=== PATIENT | male | born 1970 | race Hispanic/Latino ===

== ENCOUNTER 2018-03-09 09:42 | Inpatient (IN) | payer MEDICAID ==
[2018-03-09 09:47] VITALS: BMI 28.1
[2018-03-09 09:54] VITALS: O2SAT 97
--- NOTE | 2018-03-09 09:56 | ED PDOC ---
Arrival/HPI - General Time Seen by Provider: 03/09/18 09:47 Historian: Patient - History of Present Illness Narrative History of Present Illness (Text): 03/09/18 09:52 47-year-old male presents sent from [facility] (Former[facility]) for psychiatric admission. Patient is complaining of depression with suicidal ideations. He also states he is hearing voices. He denies chest pain or shortness of breath. Denies fevers or chills. Denies nausea vomiting diarrhea or constipation. No other complaints Past Medical History - Provider Review Nursing Documentation Reviewed: Yes - Travel History Have you recently traveled outside [place] w/in the past 3 mons?: No - Tetanus Immunization Tetanus Immunization: Unknown Family/Social History - Physician Review Nursing Documentation Reviewed: Yes Family/Social History: Unknown Family HX Smoking Status: Current Some Days Smoker Hx Alcohol Use: Yes Frequency of alcohol use: Socially Hx Substance Use: Yes Allergies/Home Meds Allergies/Adverse Reactions: Allergies No Known Allergies Allergy (Verified 03/09/18 09:47) Review of Systems - Review of Systems Constitutional: absent: Fatigue, Fevers Respiratory: absent: SOB, Cough Cardiovascular: absent: Chest Pain, Palpitations Gastrointestinal: absent: Abdominal Pain, Nausea, Vomiting Genitourinary Male: absent: Dysuria, Frequency, Hematuria Musculoskeletal: absent: Arthralgias, Back Pain, Neck Pain Skin: absent: Rash, Pruritis Neurological: absent: Headache, Dizziness Psychiatric: Depression, Suicidal Ideation Physical Exam Vital Signs Reviewed: Yes Temperature: Afebrile Blood Pressure: Normal Pulse: Regular Respiratory Rate: Normal Appearance: Positive for: Well-Appearing, Non-Toxic, Comfortable Pain Distress: None Mental Status: Positive for: Alert and Oriented X 3 - Systems Exam Head: Present: Atraumatic Mouth: Present: Moist Mucous Membranes Neck: Present: Normal Range of Motion Respiratory/Chest: Present: Clear to Auscultation, Good Air Exchange. No: Respiratory Distress, Accessory Muscle Use Cardiovascular: Present: Regular Rate and Rhythm, Normal S1, S2. No: Murmurs Abdomen: No: Tenderness Upper Extremity: Present: Normal ROM Lower Extremity: Present: Normal ROM Neurological: Present: GCS=15, Speech Normal Skin: Present: Warm, Dry, Normal Color. No: Rashes Psychiatric: Present: Alert, Oriented x 3 Medical Decision Making ED Course and Treatment: 03/09/18 09:55 47-year-old male psych transfer from [facility]. Patient was medically cleared for transfer and psychiatric admission. accepted by dr. Garcia. impression; depression, SI admit to behavioral health floor. Disposition/Present on Arrival - Present on Arrival Any Indicators Present on Arrival: No History of DVT/PE: No History of Uncontrolled Diabetes: No Urinary Catheter: No History of Decub. Ulcer: No - Disposition Have Diagnosis and Disposition been Completed?: Yes Diagnosis: Depression Disposition: HOSPITALIZED Disposition Time: 09:56 Patient Plan: Admission Condition: FAIR
--- NOTE | 2018-03-09 21:39 | PCM.BM ---
<ZachAshu - Last Filed: 03/09/18 21:36> Treatment Plan Problems - Problems identified on initial assessmt Auditory Hallucinations Date Initiated: 03/09/18 Time Initiated: :00 Assessment reference: NA Status: Active Priority: 1 Visual Hallucinations Date Initiated: 03/09/18 Time Initiated: 09:00 Assessment reference: NA Status: Active Priority: 2 Altered Thought Process Date Initiated: 03/09/18 Time Initiated: 09:00 Assessment reference: NA Status: Active Priority: 3 Chronic Low Self Esteem Date Initiated: 03/09/18 Time Initiated: 09:00 Assessment reference: NA Status: Active Priority: 4 Ineffective Coping Date Initiated: 03/09/18 Time Initiated: 09:00 Assessment reference: NA Status: Active Priority: 5 Treatment assets and liabiliti Patient Assests: adapts well, self-reliant, ADL independent, negotiates basic needs, good interpersonal skills Patient Liabilities: financial problems, poor support system, relationship conflicts, substance abuse - Milieu Protocol Maintain good personal hygiene: daily Encourage regular showers, every shift Remind patient to perform daily oral care, every shift Assist patient to perform ADL's Maintain personal safety: every shift Educate patient to report safety concerns to staff, every shift Monitor environment for contraband/sharps Medication safety: Monitor for expected outcome, potential side effects: every shift, Assess barriers to learning: every shift, Assess readiness for medication education: every shift Family Contact Family involvement: Family/SO is involved Family contact: Patient agrees to contact - Goals for Treatment Patient goals for treatment: I just want to get my life back the way it was with whatever help I can gain. I want to learn. Discharge/Continuing Care - Education Needs Education Needs: Patient Medication, Patient Diagnosis/Disease Process, Patient Coping Skills, Patient Anger Management skills, Patient Placement options, Patient Community resources, Patient Activities of Daily Living, Patient Pain, Patient Nutrition, Patient Uses of Medical Equipment, Patient Health Practices/ Safety, Patient Personal Hygiene/Grooming, Patient Aftercare Safety Plan, Patient Other - Discharge Discharge Criteria: Tolerates medication w/o severe side effects <Radha Maat - Last Filed: 03/10/18 14:48> - Diagnosis (1) MDD (major depressive disorder) Status: Acute Interventions: 03/10/18 14:46 Psychoeducation Psychopharmacology/adjustment of medications as needed/ monitoring possible side effects Evaluate pt on daily basis Compliance with medications and follow up appointments Suicide and homicide risk assessment and prevention Relapse prevention Reduction of symptoms Improve functional status Family involvement As outpatient: cognitive behavioral therapy (2) Cocaine abuse Status: Acute Interventions: 03/10/18 14:47 Maintaining sobriety Relapse prevention Possible rehabilitation Motivational interviewing 12-step programs: AA meetings (3) Chest pain Status: Acute Interventions: 03/10/18 14:47 Pt was seen by medical team patient required to go to the emergency room Medications confirmed and resumed Additional consultation by specialists as needed Lab work as needed (CBC, CMP, TSH, free T4, UA, Urine test for females as needed) CXR EKG
[2018-03-10 07:16] VITALS: BP 164/102; PULSE 74; RESP 20; TEMP 98.1
[2018-03-10 08:34] LABS: GLUCOSE,FASTING 95 mg/dL (65-110); HDL CHOLESTEROL 41 mg/dL (29-60)
[2018-03-10 08:45] LABS: LDL CHOLESTEROL 97 mg/dL (0-129)
--- NOTE | 2018-03-10 12:47 | CP.PCM.CON ---
Addendum entered and electronically signed by Álvaro Correia DO 03/10/18 18:25: Addendum: Patient developed chest pain and shortness of breath. Rapid response called ( please see [facility] WELDER note for further details). Due to persistence of pain, and in setting of recent cocaine use, patient was transferred to emergency department. Trops and EKGs obtained, but it was determined that patient should be admitted to medical service for observation and ACS rule out given recent cocaine use. Original Note: <Álvaro Correia - Last Filed: 03/10/18 12:36> History of Present Illness - History of Present Illness History of Present Illness: Hospitalist Consult Note Álvaro Correia, PGY-3 IM This is a 47 yo M with PMH of Depression, SI, and substance abuse who presented to [facility] with complaint of active depression and suicidal ideation. Medicine was consulted to see the patient due to HTN (elevated blood pressures up to 160's systolic this AM). As per patient, he admits to routine crack usage (last used 4 days prior to admission), as well as intermittently snorting cocaine, regularly smoking marijuana, and occasional binge-drinking episodes. 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 Denies any acute complaints at time of exam, including chest pain, shortness of breath, nausea, emesis, diarrhea, dysuria, hematuria, focal weakness, dizziness, headache, room spinning. All other ROS in 12-system review negative. PMH: as above PSH: denies Fam Hx: patient unaware of fam hx Soc Hx: admits tobacco (1/2-1 ppd for > 20 yrs), admits intermittent EtOH with binging (binged 3 times within last month, reports drinking at least 2x per week ), admits illicits (smoking crack and marijuana, last crack 4 days prior, admits intermittently snorting cocaine, admits previous use of ecstasy and heroin but denies recent use), denies ever using IV drugs PMD: none Review of Systems - Review of Systems All systems: reviewed and no additional remarkable complaints except (as per HPI ) Past Patient History - Infectious Disease Hx of Infectious Diseases: None - Tetanus Immunizations Tetanus Immunization: Unknown - Past Social History Smoking Status: Current Some Days Smoker - CARDIAC Hx Hypertension: Yes - PSYCHIATRIC Hx Substance Use: No - SURGICAL HISTORY Hx Surgeries: No Meds Allergies/Adverse Reactions: Allergies Allergy/AdvReac Type Severity Reaction Status Date / Time No Known Allergies Allergy Verified 03/10/18 16:17 - Medications Medications: Current Medications Lorazepam (Ativan) 2 mg PO Q6H PRN; Protocol PRN Reason: Agitation Last Admin: 03/10/18 07:00 Dose: 2 mg Lorazepam (Ativan) 2 mg IM Q6H PRN; Protocol PRN Reason: Severe Agitation Nicotine (Nicoderm Cq) 1 patch TD DAILY MINDI Last Admin: 03/10/18 09:46 Dose: 1 patch Quetiapine Fumarate (Seroquel) 50 mg PO HS MINDI PRN Reason: Protocol Last Admin: 03/09/18 22:36 Dose: 50 mg Ziprasidone (Geodon Cap) 20 mg PO Q6H PRN; Protocol PRN Reason: Agitation Last Admin: 03/09/18 13:59 Dose: 20 mg Ziprasidone (Geodon Inj) 20 mg IM Q6H PRN; Protocol PRN Reason: Severe Agitation Zolpidem Tartrate (Ambien) 5 mg PO HS PRN; Protocol PRN Reason: Insomnia Last Admin: 03/09/18 22:36 Dose: 5 mg Physical Exam - Constitutional Appears: Non-toxic, No Acute Distress - Eye Exam Eye Exam: EOMI, Normal appearance. absent: Conjunctival injection, Scleral icterus Pupil Exam: absent: Fixed, Irregular - ENT Exam ENT Exam: Mucous Membranes Moist - Neck Exam Neck exam: Positive for: Full Rom, Normal Inspection - Respiratory Exam Respiratory Exam: Clear to Auscultation Bilateral, NORMAL BREATHING PATTERN. absent: Accessory Muscle Use, Chest Wall Tenderness, Decreased Breath Sounds, Prolonged Expiratory Phase, Rales, Rhonchi, Wheezes - Cardiovascular Exam Cardiovascular Exam: REGULAR RHYTHM, RRR, +S1, +S2. absent: Bradycardia, Tachycardia, Irregular Rhythm, JVD, +S4 - GI/Abdominal Exam GI & Abdominal Exam: Normal Bowel Sounds, Soft. absent: Diminished Bowel Sounds , Distended, Firm, Hyperactive Bowel Sounds, Hypoactive Bowel Sounds, Rigid, Tenderness - Extremities Exam Extremities exam: Positive for: normal capillary refill, normal inspection, pedal pulses present. Negative for: calf tenderness, joint swelling, pedal edema, tenderness - Back Exam Back exam: absent: NORMAL INSPECTION (small cyst along right lateral aspect of back, lateral to R scapula) - Neurological Exam Neurological exam: Alert, Normal Gait, Oriented x3 - Psychiatric Exam Psychiatric exam: Normal Affect, Normal Mood - Skin Skin Exam: Dry, Intact, Normal Color, Warm Results - Vital Signs Recent Vital Signs: Last Vital Signs Temp 98.1 F 03/10/18 07:15 Pulse 74 03/10/18 07:15 Resp 20 03/10/18 07:15 BP 164/102 H 03/10/18 07:15 Pulse Ox 97 03/09/18 09:53 - Labs Labs: Laboratory Results - last 24 hr 03/10/18 03/10/18 08:10 08:10 Fasting Glucose 95 Triglycerides 170 H Cholesterol 165 LDL Cholesterol Direct 97 HDL Cholesterol 41 TSH 3rd Generation 0.46 Assessment & Plan - Assessment and Plan (Free Text) Assessment: This is a 47 yo M with PMH of Depression, SI, and substance abuse who presented to [facility] with complaint of active depression and suicidal ideation. Medicine was consulted to see the patient due to HTN (elevated blood pressures up to 160's systolic this AM). Plan: 1) Depression and SI -defer to psych for management 2) elevated BP -likely 2/2 cocaine use -no formal diagnosis of HTN but doesn't follow up with doctors -will start Lisinopril 20mg and follow up AM BPs -if tolerates Lisinopril, will need follow up in 1 week to check BPs and creatinine If still in psych, will obtain while inpatient, otherwise will provide script for patient to obtain as outpatient Dispo: Psych inpatient, pending reassessment of BP on Lisinopril FEN: Regular Diet Access: N/a Consults: IM for medical management Ppx: ambulation for DVT Patient seen, reviewed, and discussed with attending, Dr. Gutierrez <Arjun Gutierrez - Last Filed: 03/11/18 18:19> Results - Vital Signs Recent Vital Signs: Last Vital Signs Temp 98.1 F 03/10/18 07:15 Pulse 74 03/10/18 07:15 Resp 20 03/10/18 07:15 BP 164/102 H 03/10/18 07:15 Pulse Ox 97 03/09/18 09:53 - Labs Labs: Laboratory Results - last 24 hr 03/10/18 12:08 POC Glucose (mg/dL) 98 Attending/Attestation - Attestation I have personally seen and examined this patient.: Yes I have fully participated in the care of the patient.: Yes I have reviewed all pertinent clinical information: Yes Notes (Text): 03/11/18 18:19 Medical record note made by the resident after discussion with my direction and input after the patient was personally seen and examined by me. I have reviewed the chart and agree that the record accurately reflects by personal performance of the history, physical exam, data review, and medical decision-making, in the course for the patient. I have also personally directed the plan of care.
--- NOTE | 2018-03-10 13:19 | PCM.RRT ---
<Stuart David - Last Filed: 03/10/18 13:35> PAY CLERK Nurse Assessment - Situation Date: 03/10/18 Time PAY CLERK was called: 12:05 PAY CLERK Responder Arrival Time: 12:06 PAY CLERK Location:: Psychiatry Unit Room Number: 515A PAY CLERK Reason for Call: Chest Pain, Hypertension PAY CLERK Called By: RN - IV IV Inserted during PAY CLERK?: No - Respiratory Oxygen Delivery Method: Room Air Received Nebulizer Treatments:: No Was the Patient Ventilated with Bag/Mask 100% O2?: No Secretions Suctioned?: No Was the Patient Intubated?: No Was the Patient Placed on a Ventilator?: No - Medication Medications Administered During PAY CLERK: None - Diagnostic Test Ordered EKG: No (will be done in ED) Chest X-Ray: No CT Scan: No CPR started during PAY CLERK?: No - Vital Signs Vital Sign: Rapid Response Vital Sign Blood Pressure 158/113 Pulse Rate 112 Respiratory Rate 20 Oxygen Saturation 100 - Time PAY CLERK Ended Time PAY CLERK Ended: 12:10 - Vital Signs at end of PAY CLERK Vital Signs at end of PAY CLERK: Rapid Response End Vital Sign Blood Pressure 184/115 Pulse Rate 101 Respiratory Rate 20 O2 Sat by Pulse Oximetry 98 - Recommendations Notifications: Attending Physician - Respiratory Oxygen Delivery Method: Room Air Plan - Assessment of Findings&Treatment Plan Stuart David Internal Medicine Resident- House Doctor Subjective: PAY CLERK called for evaluation of chest pain and shortness of breath. States symptoms began approximately 40 minutes ago with no specific provoking event. States the pain is characterized as being burning in nature and remains localized to the retrosternal/subxiphoid region. Rates the pain is a 7/10. Admits to associated shortness of breath on exertion. Denies associated dizziness, visual/auditory changes, chest palpitations, and neurological deficits. Further denies fever, chills, abdominal pain, nausea/vomiting, diarrhea, constipation, and urinary symptoms. 12 Point ROS negative except as indicated in HPI Physical Examination: Head: atraumatic Eyes: EOMI ENT: moist mucus membranes Heart: RRR +s1, +s2 Lungs: Clear to auscultation bilaterally, no wheezing, no rhonchi, no rales Abdomen: Nontender, soft, no guarding, no rebound tenderness Neuro: AAO x 3, responds to verbal stimuli, answers questions appropriately, follows commands, and moves extremities past midline Extremities: no swelling, no cyanosis Skin: dry, warm Assessment and Plan: Patient is a 47M with PMHx of hypertension and cocaine abuse who was admitted to the hospital for evaluation and treatment of suicidal ideation. PAY CLERK called on patient for evaluation and treatment of chest pain and shortness of breath. Chest Pain, SOB - vitals reviewed- hypertensive, HR in 90s bpm , SaO2 94% - patient placed on monitor- NSR , no defining ST-T wave changes - supplemental oxygen 2L via NC - patient transferred to ED for further management - patient case endorsed to ED physician Patient seen, case reviewed with, and plan approved by attending physician, Dr. Gutierrez. <Arjun Gutierrez - Last Filed: 03/11/18 18:11> PAY CLERK Nurse Assessment - Vital Signs Vital Sign: Rapid Response Vital Sign Blood Pressure 158/113 Pulse Rate 112 Respiratory Rate 20 Oxygen Saturation 100 - Vital Signs at end of PAY CLERK Vital Signs at end of PAY CLERK: Rapid Response End Vital Sign Blood Pressure 184/115 Pulse Rate 101 Respiratory Rate 20 O2 Sat by Pulse Oximetry 98 Attending/Attestation - Attestation I have personally seen and examined this patient.: Yes I have fully participated in the care of the patient.: Yes I have reviewed all pertinent clinical information, including history, physical exam and plan: Yes
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
== END 2018-03-10 12:10 | disposition short-term general hospital (02) | DRG 426 ==
LOC: ED 09:42 → ERH 09:56 → PSYC 11:28
PROVIDERS: ADMIT Psychiatry & Neurology Psychiatry; ATTEND Psychiatry & Neurology Psychiatry
DX: F32.9 Major depressive disorder, single episode, unspecified (principal); F14.10 Cocaine abuse, uncomplicated; I10 Essential (primary) hypertension; R45.851 Suicidal ideations; F17.210 Nicotine dependence, cigarettes, uncomplicated; F12.10 Cannabis abuse, uncomplicated; R07.9 Chest pain, unspecified; R06.02 Shortness of breath; Z81.8 Family history of other mental and behavioral disorders